=== PATIENT | male | born 1940 | race Caucasian/White ===

== ENCOUNTER 2018-06-14 07:45 | Inpatient (IN) | payer MEDICARE, BC | END 2018-06-30 16:00 | disposition home health service (06) | LOC: ER 07:45 → ED HOLD 09:29 → PCU 3S 12:55 | PROC: 30253N1 (ICD-10-PCS; principal; ~2018-06-14) | PROC: 0DJ08ZZ Inspection of Upper Intestinal Tract, Via Natural or Artificial Opening Endoscopic (ICD-10-PCS; ~2018-06-14) | DX: J86.9 Pyothorax without fistula (principal); J96.01 Acute respiratory failure with hypoxia; J18.9 Pneumonia, unspecified organism; K29.01 Acute gastritis with bleeding; E43 Unspecified severe protein-calorie malnutrition; N17.9 Acute kidney failure, unspecified; J44.1 Chronic obstructive pulmonary disease with (acute) exacerbation; D62 Acute posthemorrhagic anemia; J98.11 Atelectasis; K29.70 Gastritis, unspecified, without bleeding; G89.4 Chronic pain syndrome; E87.5 Hyperkalemia ==